=== PATIENT | female | born 1965 | race Caucasian/White ===

== ENCOUNTER 2022-08-30 16:31 | Emergency (ER) | payer MEDICARE, OTHER ==
[~2022-08-30] VITALS: Ht 170.2 cm; Wt 100.7 kg
--- NOTE | 2022-08-30 16:45 | NUR ---
RECEIVED pt 57 yrs female came by alejandrina from home c/o dizzness and syncopy genralized weekness
--- NOTE | 2022-08-30 16:50 | NUR ---
SEEN BY ORDER WAS given
[2022-08-30] MEDS ORDERED: IV NS 0.9% 1,000 ML IV ONE (17:00)
--- NOTE | 2022-08-30 17:00 | NUR ---
Inserted ango catheter g [address] ac blood drow and sent to lab
--- NOTE | 2022-08-30 17:11 | NUR ---
ACCHCHEK DONE 80MG/LD
--- NOTE | 2022-08-30 17:12 | NUR ---
TO CT SCAN of head via garny awake and alert
[2022-08-30 17:34] LABS: BASOPHILS % (AUTO) 0.2 % (0.0-2.0); EOSINOPHILS % (AUTO) 0.8 % (0.0-6.0); HEMATOCRIT 36 % (33-45); HEMOGLOBIN 11.6 g/dL (11.5-14.8); LYMPHOCYTES # (AUTO) 1.1 K/uL (0.8-4.8); LYMPHOCYTES % (AUTO) 12.2 % (20.0-44.0); MEAN CORPUSCULAR HGB CONC 33 g/dl (31.0-36.0); MEAN CORPUSCULAR VOLUME 89 fL (82-100); MONOCYTES # (AUTO) 0.2 K/uL (0.1-1.30); MONOCYTES % (AUTO) 1.8 % (2.0-12.0); NEUTROPHILS # (AUTO) 7.6 K/uL (1.8-8.9); PLATELET COUNT (AUTO) 187 K/uL (150-450); RED BLOOD CELL COUNT(AUTO) 4.01 MIL/uL (4.0-5.2); WHITE BLOOD COUNT (AUTO) 8.9 K/uL (4.3-11.0)
--- NOTE | 2022-08-30 17:38 | NUR ---
Doubler study done at bed side
[2022-08-30 17:45] LABS: CALCIUM, SERUM 8.7 mg/dL (8.5-10.1); CARBON DIOXIDE 33 mmol/L (21-32); CHLORIDE 101 mmol/L (98-107); CREATININE 0.9 mg/dL (0.6-1.3); GLUCOSE 104 mg/dL (74-106); POTASSIUM 3.2 mmol/L (3.5-5.1); SODIUM SERUM 140 mmol/L (136-145); UREA NITROGEN, BLOOD 12 mg/dL (7-18)
[2022-08-30 17:49] LABS: ALANINE AMINOTRANSFERASE 15 U/L (12-78); ALBUMIN 3.4 g/dL (3.4-5.0); ALKALINE PHOSPHATASE 98 U/L (46-116); ASPARTATE AMINOTRANSFERASE 24 U/L (15-37); BILIRUBIN,DIRECT 0.3 mg/dL (0.0-0.2); BILIRUBIN,TOTAL 0.9 mg/dL (0.2-1.0); TOTAL PROTEIN, SERUM 8.4 g/dL (6.4-8.2)
[2022-08-30 17:57] LABS: THYROID STIMULATING HORMONE 0.222 uIU/mL (0.358-3.74)
--- NOTE | 2022-08-30 18:00 | NUR ---
COVID SWAB SENT TO LAB
--- NOTE | 2022-08-30 19:10 | NUR ---
Dipak marin in [place] - 08/30/22 at 1928 by ADRIANNE UA SENT TO LAB
--- NOTE | 2022-08-30 19:15 | NUR ---
HAND SALVATORE DANIELS RN
--- NOTE | 2022-08-30 19:21 | NUR ---
URINE COLLECTED AND SENT TO LAB
[2022-08-30 20:18] LABS: BILIRUBIN,URINE NEGATIVE (NEGATIVE); COLOR,URINE YELLOW (YELLOW); LEUKOCYTE ESTERASE ,URINE SMALL (NEGATIVE); NITRITE, URINE NEGATIVE (NEGATIVE); PROTEIN,URINE 30 mg/dl (NEGATIVE); UGLUCOSE NEGATIVE (NEGATIVE)
[2022-08-30 20:43] LABS: BACTERIA,URINE 2+ /HPF (None Seen); MUCUS,URINE Few /LPF (None Seen); SQUAMOUS EPITHELIAL CELL,UR 0-2 /HPF (None Seen)
[2022-08-30] MEDS ORDERED: SULF1TAB48 PO (21:04)
[2022-08-30] MEDS ORDERED: KETOROLAC TROMETHAMINE INJ 30 MG/ML VIAL ONE (21:20)
[2022-08-30] MEDS ORDERED: KETOROLAC TROMETHAMINE INJ 30 MG/ML VIAL IV ONE (21:30)
--- NOTE | 2022-08-30 21:31 | NUR ---
Patient discharged to home in stable condition. RX Written and verbal after care instructions given. Patient verbalizes understanding of instruction. IV removed. Catheter intact and site benign. Pressure and 4x4 applied to site. No bleeding noted.
[2022-08-30 22:38] VITALS: BP 124/81
== END 2022-08-30 22:38 | disposition home or self-care (01) ==
LOC: ER 16:36
DX: R55 Syncope and collapse (principal); N39.0 Urinary tract infection, site not specified; Z20.822 Contact with and (suspected) exposure to COVID-19; R00.0 Tachycardia, unspecified; D32.9 Benign neoplasm of meninges, unspecified; I51.7 Cardiomegaly; Z86.69 Personal history of other diseases of the nervous system and sense organs
CPT/HCPCS: 99285; 96374; 70450; 93971; 71045; 96361; 87426; 93005; 85025; 80048; 87086; 80076; 81001; 36415; 84439; 84443; 84484; 85730; 83880; J1885; J7030; C9803

== ENCOUNTER 2022-11-08 16:04 | Inpatient (IN) | payer MEDICARE, OTHER ==
[~2022-11-08] VITALS: Ht 152.4 cm; Wt 112.7 kg
[~2022-11-08 16:04] MED LIST: SULF1TAB48 PO
[2022-11-08] MEDS ORDERED: VANCOMYCIN 1 GM in IV D5W 250 ML IV ONE (17:00)
[2022-11-08] MEDS ORDERED: PIPERACILLIN /TAZOBACTAM 3.375 G in IV D5W 50 ML IV ONE (17:00)
--- NOTE | 2022-11-08 17:00 | NUR ---
PHLEB AT BEDSIDE FOR BLOOD DRAW
--- NOTE | 2022-11-08 17:05 | NUR ---
PT TAKEN TO RADIOLOGY FOR CT
--- NOTE | 2022-11-08 17:17 | NUR ---
PT RETURNED FROM RADIOLOGY
[2022-11-08 17:19] LABS: BASOPHILS % (AUTO) 0.1 % (0.0-2.0); EOSINOPHILS % (AUTO) 2.3 % (0.0-6.0); HEMATOCRIT 29 % (33-45); HEMOGLOBIN 9.4 g/dL (11.5-14.8); LYMPHOCYTES # (AUTO) 1.6 K/uL (0.8-4.8); LYMPHOCYTES % (AUTO) 25.5 % (20.0-44.0); MEAN CORPUSCULAR HGB CONC 32 g/dl (31.0-36.0); MEAN CORPUSCULAR VOLUME 90 fL (82-100); MONOCYTES # (AUTO) 0.3 K/uL (0.1-1.30); MONOCYTES % (AUTO) 4.7 % (2.0-12.0); NEUTROPHILS # (AUTO) 4.3 K/uL (1.8-8.9); NEUTROPHILS % (AUTO) 67.4 % (43.0-81.0); PLATELET COUNT (AUTO) 211 K/uL (150-450); RED BLOOD CELL COUNT(AUTO) 3.25 MIL/uL (4.0-5.2); WHITE BLOOD COUNT (AUTO) 6.3 K/uL (4.3-11.0)
[2022-11-08] MEDS ORDERED: LEVO75TA7 PO (17:19)
[2022-11-08] MEDS ORDERED: MODAFINIL PO (17:20)
--- NOTE | 2022-11-08 17:30 | NUR ---
INSTANT POWDER SUPERVISOR AT BEDSIDE FOR ULTRASOUND
[2022-11-08 17:31] LABS: CALCIUM, SERUM 8.9 mg/dL (8.5-10.1); CARBON DIOXIDE 30 mmol/L (21-32); CHLORIDE 102 mmol/L (98-107); CREATININE 0.7 mg/dL (0.6-1.3); GLUCOSE 100 mg/dL (74-106); SODIUM SERUM 136 mmol/L (136-145); UREA NITROGEN, BLOOD 9 mg/dL (7-18)
--- NOTE | 2022-11-08 17:35 | NUR ---
IV LINE ESTABLISHED ON RAC #20
[2022-11-08] MEDS ORDERED: KETOROLAC TROMETHAMINE 15 MG/ML VIAL ONE (17:36)
--- NOTE | 2022-11-08 17:44 | NUR ---
COVID SWAB COLLECTED AND SENT TO LAB
[2022-11-08 17:45] LABS: ALANINE AMINOTRANSFERASE 72 U/L (12-78); ALBUMIN 2.9 g/dL (3.4-5.0); ALKALINE PHOSPHATASE 283 U/L (46-116); ASPARTATE AMINOTRANSFERASE 72 U/L (15-37); BILIRUBIN,DIRECT 0.2 mg/dL (0.0-0.2); BILIRUBIN,TOTAL 0.5 mg/dL (0.2-1.0); TOTAL PROTEIN, SERUM 8.1 g/dL (6.4-8.2)
[2022-11-08] MEDS ORDERED: KETOROLAC TROMETHAMINE INJ 30 MG/ML VIAL IV ONE (18:00)
--- NOTE | 2022-11-08 18:25 | NUR ---
MOVE SHEET SUBMITTED.
[2022-11-08] MEDS ORDERED: POTASSIUM CHLORIDE 20 MEQ TAB.PRT.SR PO ONE ×2 (18:30→18:36)
--- NOTE | 2022-11-08 20:25 | NUR ---
report given nurse ibarra
[2022-11-08 20:30] VITALS: BP 133/82
--- NOTE | 2022-11-08 21:27 | NUR ---
patient transferred, vss, no acute distress noted
[2022-11-08 21:30] VITALS: BP 132/82
--- NOTE | 2022-11-08 21:30 | NUR ---
MS PHOTOGRAPH FINISHER INITIAL MELISSA ADMIT PT FROM ER VIA WHEELCHAIR ACCOMPANIED BY SOFTWARE REVERSE ENGINEER. DX OF CELLULITIS. PT IS A/O X4 ABLE TO AMBULATE WITH ASSISTANCE BECAUSE OF HER LEFT LOWER LEG CELLULITIS. VITAL SIGNS FF BP 133/82, PULSE 63, RESP 18, TEMP 98F, O2 SAT 100%. PT HAS HEPLOCK GAUGE 20 PATENT AND INTACT. DENIES ANY PAIN OR ANY DISCOMFORT. WOUND CARE DONE, PICTURE TAKEN AND DRESSING CHANGES. KEPT HER WARM AND COMFORTABLE AT ALL TIMES. ORIENTED HOW TO USED THE CALL LIGHT SYSTEM . WILL CONTINUE MONITORING.
[2022-11-09] MEDS ORDERED: MAG HYDROX/AL HYDROX/SIMETH 30 ML UDC PO PRN
[2022-11-09] MEDS ORDERED: ZOLPIDEM TARTRATE 5 MG TABLET PO PRN
[2022-11-09] MEDS ORDERED: ONDANSETRON HCL/PF 4 MG/2 ML VIAL IVP PRN
[2022-11-09] MEDS ORDERED: ACETAMINOPHEN 325 MG TABLET PO PRN
[2022-11-09] MEDS ORDERED: Z GUARD REMEDY 4 OZ OINT TP PRN
[2022-11-09] MEDS ORDERED: MAGNESIUM HYDROXIDE 30 ML UDC PO PRN
[2022-11-09] MEDS ORDERED: PIPERACILLIN /TAZOBACTAM 3.375 G VIAL IV ONE (01:55)
[2022-11-09] MEDS: ENOXAPARIN SODIUM 40 MG/0.4 ML DISP.SYRIN SQ SCH ×2 (02:13→21:48)
[2022-11-09] MEDS: ZOSYN IVPB 3.375 G in IV D5W 50ml IV SCH ×2 (02:14→08:23)
--- NOTE | 2022-11-09 02:28 | NUR ---
ms valentin notes Due meds given as ordered. no signs of discomfort noted.
--- NOTE | 2022-11-09 06:33 | NUR ---
ms clay pigeon setter closing notes pt woke up and assist to used the bedside commode then back to bed . No signs of any distress noted. slept well . Stable throughout the night . Kept her warm and comfortable at all times. Offload bilateral heels on pillows. All due meds given and all needs met. will endorse to am nurse for continuity of care. place call light at reach.
--- NOTE | 2022-11-09 07:00 | NUR ---
MS RN OPENING NOTES: RECEIVED PT IN BED, ASLEEP EASILY AROUSED WITH STIMULI. PT ALERT AND ORIENTED X 4 AND ABLE TO MAKE NEEDS KNOWN, NO SOB OR CARDIAC DISTRESS NOTED. DENIES PAIN AT THIS TIME. NOTED WITH IV ACCESS ON RAC GAUGE 2. PATENT, INTACT AND SALINE LOCKED. NOTED WITH SWOLLEN LEFT LOWER LEG. SAFETY MEASURES MAINTAINED: BED LOCKED AND IN LOWEST POSITION, SIDE RAILS UP X 2. CALL LIGHT AND BED SIDE TABLE IN EASY REACH FOR HELP. WILL MONITOR ACCORDINGLY.
[2022-11-09] MEDS: LEVOTHYROXINE SODIUM 75 MCG TABLET PO SCH (07:38)
[2022-11-09] MEDS: PANTOPRAZOLE 40 MG TABLET.DR PO SCH (07:38)
[2022-11-09 08:00] VITALS: BP 124/71
[2022-11-09] MEDS: MODAFINIL 100 MG TABLET PO SCH ×3 (09:00→16:25)
--- NOTE | 2022-11-09 09:30 | NUR ---
RN NOTES: FOLLOW UP [facility] TO PHARMACY, PHARMACIST STATED THEY WILL DELIVER IT NOW. WILL FOLLOW UP.
[2022-11-09 11:21] LABS: BASOPHILS % (AUTO) 0.3 % (0.0-2.0); EOSINOPHILS % (AUTO) 3.3 % (0.0-6.0); HEMATOCRIT 27 % (33-45); HEMOGLOBIN 9.1 g/dL (11.5-14.8); LYMPHOCYTES # (AUTO) 1.6 K/uL (0.8-4.8); LYMPHOCYTES % (AUTO) 34.6 % (20.0-44.0); MEAN CORPUSCULAR HGB CONC 33 g/dl (31.0-36.0); MEAN CORPUSCULAR VOLUME 89 fL (82-100); MONOCYTES # (AUTO) 0.2 K/uL (0.1-1.30); MONOCYTES % (AUTO) 5.2 % (2.0-12.0); NEUTROPHILS # (AUTO) 2.6 K/uL (1.8-8.9); NEUTROPHILS % (AUTO) 56.6 % (43.0-81.0); PLATELET COUNT (AUTO) 191 K/uL (150-450); RED BLOOD CELL COUNT(AUTO) 3.09 MIL/uL (4.0-5.2); WHITE BLOOD COUNT (AUTO) 4.5 K/uL (4.3-11.0)
[2022-11-09 11:35] LABS: CALCIUM, SERUM 8.5 mg/dL (8.5-10.1); CREATININE 0.6 mg/dL (0.6-1.3); MAGNESIUM 1.8 mg/dL (1.8-2.4)
--- NOTE | 2022-11-09 11:45 | NUR ---
RN NOTES: FOLLOW UP WITH PHARMACY AND PER PHARM THEY WILL FOLLOW UP. SHE STATED SHE WILL UPDATE RN.
[2022-11-09 11:54] LABS: POTASSIUM 2.8 mmol/L (3.5-5.1)
--- NOTE | 2022-11-09 12:36 | NUR ---
RN NOTES: RECEIVED CRIITICAL LAB RESULT: K LEVEL 2.8, REPORTED TO DR RENTERIA. ORDERED POTASSIUM PO 80MEQ ONE DOSE ONLY. ORDERS NOTED AND CARRIED OUT.
[2022-11-09] MEDS ORDERED: POTASSIUM CHLORIDE 20 MEQ TAB.PRT.SR PO ONE (13:00)
[2022-11-09] MEDS: VANCOMYCIN HCL 0.75 GM in IV D5W 250 ML IV SCH ×2 (13:37→20:55)
[2022-11-09 16:00] VITALS: BP 122/72
[2022-11-09 17:19] LABS: BILIRUBIN,URINE NEGATIVE (NEGATIVE); COLOR,URINE YELLOW (YELLOW); LEUKOCYTE ESTERASE ,URINE TRACE (NEGATIVE); NITRITE, URINE NEGATIVE (NEGATIVE); PH,URINE 5.5 (5.0-8.0); PROTEIN,URINE NEGATIVE (NEGATIVE); UGLUCOSE NEGATIVE (NEGATIVE); UROBILINOGEN,URINE 0.2 EU/dL (0.2)
[2022-11-09 17:34] LABS: BACTERIA,URINE None seen /HPF (None Seen); SQUAMOUS EPITHELIAL CELL,UR 0-2 /HPF (None Seen); URINE AMORPHOUS URATE Moderate /HPF (None Seen); WBC,URINE 0-2 /HPF (0-3)
--- NOTE | 2022-11-09 18:50 | NUR ---
MS RN CLOSING NOTES: PATIENT IN BED, AWAKE ALERT AND ORIENTED X 4 AND ABLE TO VERBALIZED NEEDS. NO SOB OR CARDIAC DISTRESS NOTED, DENIES PAIN AT THIS TIME.ON ROOM AIR AND TOLERATING WELL. IV ACCESS ON RAC GAUGE 20 PATENT,INTACT AND SALINE LOCKED. WOUND CARE TREATMENT DONE, PT TOLERATED WELL. SAFETY MEASURES MAINTAINED: BED LOCKED AND IN LOWEST POSITION, SIDE RAILS UP X 2, CALL LIGHT IN EASY REACH FOR HELP. ENDORSE TO DENITRATOR RN FOR CONTINUITY OF CARE.
[2022-11-09 20:00] VITALS: BP 131/62
[2022-11-09] MEDS: PIPERACILLIN /TAZOBACTAM 3.375 G in IV D5W 100 ML IV SCH (21:38)
[2022-11-10] MEDS: VANCOMYCIN HCL 0.75 GM in IV D5W 250 ML IV SCH ×3 (05:06→22:08)
[2022-11-10] MEDS: PIPERACILLIN /TAZOBACTAM 3.375 G in IV D5W 100 ML IV SCH (05:35)
[2022-11-10] MEDS: HYDROCODONE/APAP 5/325MG TABLET PO PRN ×2 (06:12→20:22)
--- NOTE | 2022-11-10 07:00 | NUR ---
MS RN OPENING NOTES: RECEIVED PT IN BED, AWAKE, WATCHING TELEVISION. PT ALERT AND ORIENTED X 4 AND ABLE TO MAKE NEEDS KNOWN, NO SOB OR CARDIAC DISTRESS NOTED. DENIES PAIN AT THIS TIME. NOTED WITH IV ACCESS ON RAC GAUGE 20 PATENT, INTACT AND SALINE LOCKED. NOTED WITH SWOLLEN LEFT LOWER LEG WRAPPED WITH KERLIX NOTED WITH YELLOW COLORED DISCHARGE ON DRESSING. SAFETY MEASURES MAINTAINED: BED LOCKED AND IN LOWEST POSITION, SIDE RAILS UP X 2. CALL LIGHT AND BED SIDE TABLE IN EASY REACH FOR HELP. WILL MONITOR ACCORDINGLY.
[2022-11-10 07:13] LABS: CALCIUM, SERUM 8.5 mg/dL (8.5-10.1); CREATININE 0.6 mg/dL (0.6-1.3); POTASSIUM 3.9 mmol/L (3.5-5.1)
[2022-11-10] MEDS: PANTOPRAZOLE 40 MG TABLET.DR PO SCH (07:25)
[2022-11-10] MEDS: LEVOTHYROXINE SODIUM 75 MCG TABLET PO SCH (07:25)
[2022-11-10 08:00] VITALS: BP 132/80
[2022-11-10] MEDS: MODAFINIL 100 MG TABLET PO SCH ×3 (08:38→17:07)
--- NOTE | 2022-11-10 09:30 | NUR ---
RN NOTES: WOUND CARE TREATMENT DONE, PT TOLERATED WELL.
[2022-11-10] MEDS ORDERED: VANCOMYCIN 0.75 GM in IV D5W 250 ML IV SCH (11:00)
[2022-11-10] MEDS: ZOSYN IVPB 3.375 G in IV D5W 50ml IV SCH ×2 (11:31→17:09)
[2022-11-10 16:00] VITALS: BP 119/72
--- NOTE | 2022-11-10 18:45 | NUR ---
MS RN CLOSING NOTES: PATIENT IN BED, AWAKE ALERT AND ORIENTED X 4 AND ABLE TO VERBALIZED NEEDS. NO SOB OR CARDIAC DISTRESS NOTED, DENIES PAIN AT THIS TIME. FAMILY AT BED SIDE. ON ROOM AIR AND TOLERATING WELL. IV ACCESS ON LFA GAUGE 22 PATENT,INTACT AND SALINE LOCKED. WOUND CARE TREATMENT DONE, PT TOLERATED WELL. SAFETY MEASURES MAINTAINED: BED LOCKED AND IN LOWEST POSITION, SIDE RAILS UP X 2, CALL LIGHT IN EASY REACH FOR HELP. ENDORSE TO SHEEP OR CALF GRADER RN FOR CONTINUITY OF CARE.
--- NOTE | 2022-11-10 19:45 | NUR ---
RN OPENING NOTE RECEIVED PATIENT IN BED; AWAKE, ALERT AND ORIENTED X 4. ON ROOM AIR; TOLERATING WELL SATURATING @ 99%. NOT IN ANY FORM OF RESPIRATORY OR CARDIAC DISTRESS. DENIES ANY PAIN OR DISCOMFORT AT THIS TIME. WITH IV ACCESS ON LEFT FOREARM 22G; PATENT, INTACT AND SALINE LOCKED. ABLE TO VERBALIZE NEEDS. SAFETY MEASURES IMPLEMENTED: CALL LIGHT AND TABLE WITHIN EASY REACH, SIDE RAILS UP X 3, BED IN LOWEST LOCKED POSITION. WILL CONTINUE TO MONITOR
[2022-11-10 20:00] VITALS: BP 131/83
--- NOTE | 2022-11-10 20:22 | NUR ---
RN NOTE PATIENT COMPLAINED OF PAIN ON BOTH LOWER LEGS WITH PAIN SCALE OF 5/10. PRN NORCO 5/325 MG GIVEN PO ORDERED. KEPT COMFORTABLE IN BED. WILL CONTINUE TO MONITOR AND REASSESS PATIENT.
[2022-11-10] MEDS: DOXYCYCLINE HYCLATE (100 MG) 100 MG TABLET PO SCH (22:12)
[2022-11-10] MEDS: ENOXAPARIN SODIUM 40 MG/0.4 ML DISP.SYRIN SQ SCH (23:13)
[2022-11-11] MEDS: ZOSYN IVPB 3.375 G in IV D5W 50ml IV SCH ×5 (00:50→23:09)
[2022-11-11] MEDS: VANCOMYCIN HCL 0.75 GM in IV D5W 250 ML IV SCH ×3 (04:18→21:52)
--- NOTE | 2022-11-11 06:50 | NUR ---
RN CLOSING NOTE PATIENT IN BED; AWAKE, A/O X 4. STABLE ON ROOM AIR. IN NO ACUTE DISTRESS. DENIES ANY PAIN OR DISCOMFORT AT THIS TIME. WITH IV ACCESS LEFT FOREARM 22G; PATENT, INTACT AND SALINE LOCKED. ALL NEEDS MET. SAFETY MEASURES MAINTAINED: CALL LIGHT AND TABLE WITHIN EASY REACH, SIDE RAILS UP X 3, BED IN LOWEST LOCKED POSITION. ENDORSED TO MORNING SHIFT FOR HERMES.
[2022-11-11] MEDS: LEVOTHYROXINE SODIUM 75 MCG TABLET PO SCH ×2 (07:30→07:55)
[2022-11-11] MEDS: PANTOPRAZOLE 40 MG TABLET.DR PO SCH (07:55)
[2022-11-11] MEDS: DOXYCYCLINE HYCLATE (100 MG) 100 MG TABLET PO SCH ×2 (08:51→21:53)
[2022-11-11] MEDS: MODAFINIL 100 MG TABLET PO SCH ×3 (08:51→16:45)
--- NOTE | 2022-11-11 09:24 | NUR ---
RN OPENING NOTE PATIENT AWAKE IN BED RESTING, A/O X 4. NO S/S OF PAIN NOTED AT THIS TIME. ON ROOM AIR, NO DISTRESS OR SHORTNESS OF BREATH NOTED. IV ACCESS LFA #22G, INTACT, PATENT AND FLUSHING WELL. FALL AND SAFETY MEASURES IN PLACE, BED ALARM ON, BED IN LOW AND LOCK POSITION, CALL LIGHT AND TABLE WITHIN EASY REACH, SIDE RAILS UP X2. WILL CONTINUE TO MONITOR.
[2022-11-11 09:27] LABS: BASOPHILS % (AUTO) 0.4 % (0.0-2.0); EOSINOPHILS % (AUTO) 4.2 % (0.0-6.0); HEMATOCRIT 28 % (33-45); HEMOGLOBIN 9.1 g/dL (11.5-14.8); LYMPHOCYTES # (AUTO) 1.9 K/uL (0.8-4.8); LYMPHOCYTES % (AUTO) 48.4 % (20.0-44.0); MEAN CORPUSCULAR HGB CONC 33 g/dl (31.0-36.0); MEAN CORPUSCULAR VOLUME 90 fL (82-100); MONOCYTES # (AUTO) 0.3 K/uL (0.1-1.30); MONOCYTES % (AUTO) 6.4 % (2.0-12.0); NEUTROPHILS # (AUTO) 1.6 K/uL (1.8-8.9); NEUTROPHILS % (AUTO) 40.6 % (43.0-81.0); PLATELET COUNT (AUTO) 217 K/uL (150-450); RED BLOOD CELL COUNT(AUTO) 3.08 MIL/uL (4.0-5.2)
[2022-11-11 09:32] LABS: CALCIUM, SERUM 8.7 mg/dL (8.5-10.1); CREATININE 0.6 mg/dL (0.6-1.3); POTASSIUM 3.5 mmol/L (3.5-5.1)
[2022-11-11] MEDS: HYDROCODONE/APAP 5/325MG TABLET PO PRN ×2 (11:38→17:58)
[2022-11-11 11:45] VITALS: BP 129/66
--- NOTE | 2022-11-11 19:24 | NUR ---
RN CLOSING NOTE PATIENT AWAKE IN BED RESTING, A/O X 4. NO S/S OF PAIN NOTED AT THIS TIME. ON ROOM AIR, NO DISTRESS OR SHORTNESS OF BREATH NOTED. IV ACCESS LFA #22G, INTACT, PATENT AND FLUSHING WELL. SCHEDULED MEDICATIONS ADMINISTERED. WOUND CARE IMPLEMENTED. FALL AND SAFETY MEASURES IN PLACE, BED ALARM ON, BED IN LOW AND LOCK POSITION, CALL LIGHT AND TABLE WITHIN EASY REACH, SIDE RAILS UP X2. WILL ENDORSE TO OFFSET PRINTING OPERATOR.
--- NOTE | 2022-11-11 19:40 | NUR ---
RN OPENING NOTE RECEIVED PATIENT IN BED; AWAKE, ALERT AND ORIENTED X 4. ON ROOM AIR; TOLERATING WELL. NOT IN ANY FORM OF RESPIRATORY OR CARDIAC DISTRESS. DENIES ANY PAIN OR DISCOMFORT AT THIS TIME. WITH IV ACCESS ON LEFT FOREARM 22G; INTACT, PATENT AND SALINE LOCKED. ABLE TO VERBALIZE NEEDS. SAFETY MEASURES IMPLEMENTED: CALL LIGHT AND TABLE WITHIN EASY REACH, SIDE RAILS UP X 3, BED IN LOWEST LOCKED POSITION. WILL CONTINUE TO MONITOR
[2022-11-11 20:00] VITALS: BP_SYST 134; BP_SYST 142; BP_DIAS 80; BP_DIAS 88
[2022-11-11] MEDS: ENOXAPARIN SODIUM 40 MG/0.4 ML DISP.SYRIN SQ SCH (22:37)
--- NOTE | 2022-11-12 05:00 | NUR ---
RN NOTE PATIENT REFUSED TO HAVE PICTURES TAKEN ON HER LEFT LEG AND LEFT FOOT.
[2022-11-12] MEDS: VANCOMYCIN HCL 0.75 GM in IV D5W 250 ML IV SCH ×2 (05:24→14:37)
[2022-11-12] MEDS: ZOSYN IVPB 3.375 G in IV D5W 50ml IV SCH (06:26)
[2022-11-12 07:00] VITALS: BP 119/72
[2022-11-12] MEDS ORDERED: SULF1TAB48 PO (08:23)
[2022-11-12] MEDS: MODAFINIL 100 MG TABLET PO SCH ×3 (08:36→17:44)
[2022-11-12] MEDS: PANTOPRAZOLE 40 MG TABLET.DR PO SCH (08:36)
[2022-11-12] MEDS: LEVOTHYROXINE SODIUM 75 MCG TABLET PO SCH (08:36)
[2022-11-12] MEDS: DOXYCYCLINE HYCLATE (100 MG) 100 MG TABLET PO SCH (08:37)
[2022-11-12] MEDS ORDERED: CEFTRIAXONE 1 G in IV D5W 50 ML IV SCH (14:00)
[2022-11-12 15:49] LABS: BASOPHILS % (AUTO) 0.2 % (0.0-2.0); EOSINOPHILS % (AUTO) 4.2 % (0.0-6.0); HEMATOCRIT 29 % (33-45); HEMOGLOBIN 9.3 g/dL (11.5-14.8); LYMPHOCYTES # (AUTO) 1.8 K/uL (0.8-4.8); MEAN CORPUSCULAR HGB CONC 32 g/dl (31.0-36.0); MEAN CORPUSCULAR VOLUME 89 fL (82-100); MONOCYTES # (AUTO) 0.3 K/uL (0.1-1.30); MONOCYTES % (AUTO) 6.4 % (2.0-12.0); NEUTROPHILS # (AUTO) 1.9 K/uL (1.8-8.9); NEUTROPHILS % (AUTO) 46.2 % (43.0-81.0); PLATELET COUNT (AUTO) 232 K/uL (150-450); RED BLOOD CELL COUNT(AUTO) 3.22 MIL/uL (4.0-5.2); WHITE BLOOD COUNT (AUTO) 4.2 K/uL (4.3-11.0)
[2022-11-12 16:00] VITALS: BP 121/72
[2022-11-12 16:03] LABS: CREATININE 0.7 mg/dL (0.6-1.3); POTASSIUM 3.9 mmol/L (3.5-5.1)
== END 2022-11-12 19:23 | disposition home or self-care (01) | DRG 602 ==
LOC: ER 16:11 → MED 20:28
PROVIDERS: ADMIT Student in an Organized Health Care Education/Training Program; ATTEND Internal Medicine
DX: L03.116 Cellulitis of left lower limb (principal); E43 Unspecified severe protein-calorie malnutrition; N39.0 Urinary tract infection, site not specified; Z68.42 Body mass index [BMI] 45.0-49.9, adult; L97.829 Non-pressure chronic ulcer of other part of left lower leg with unspecified severity; Z86.73 Personal history of transient ischemic attack (TIA), and cerebral infarction without residual deficits; Z20.822 Contact with and (suspected) exposure to COVID-19; E66.01 Morbid (severe) obesity due to excess calories; G47.33 Obstructive sleep apnea (adult) (pediatric); I50.9 Heart failure, unspecified; Z79.899 Other long term (current) drug therapy; E87.6 Hypokalemia; D64.9 Anemia, unspecified; D32.9 Benign neoplasm of meninges, unspecified; E03.9 Hypothyroidism, unspecified; I89.0 Lymphedema, not elsewhere classified; E88.09 Other disorders of plasma-protein metabolism, not elsewhere classified; I83.028 Varicose veins of left lower extremity with ulcer other part of lower leg
CPT/HCPCS: 36415; 73700-TC; 80048-TC; 80076-TC; 80202-TC; 81001; 83605-TC; 83735-TC; 83880; 84100-TC; 84484-TC; 85025-TC; 87040-TC; 93971-TC; A6253; A6403; C9803; G0378; J0696; J1650; J1885; J2543; J3370; J7060

== ENCOUNTER 2022-11-26 10:43 | Outpatient (CLI) | payer MEDICARE, OTHER ==
[~2022-11-26 10:43] MED LIST changes: +LEVO75TA7 PO; +MODAFINIL PO
== END 2022-11-26 23:59 | disposition home or self-care (01) ==
LOC: WOU 10:43
PROVIDERS: ATTEND Podiatrist Foot & Ankle Surgery
DX: I87.2 Venous insufficiency (chronic) (peripheral) (principal); R60.0 Localized edema; L85.3 Xerosis cutis
CPT/HCPCS: G0463

== ENCOUNTER 2022-12-10 09:35 | Outpatient (CLI) | payer MEDICARE, OTHER | END 2022-12-10 23:59 | disposition home or self-care (01) | LOC: WOU 09:35 | PROVIDERS: ATTEND Podiatrist Foot & Ankle Surgery | DX: I87.2 Venous insufficiency (chronic) (peripheral) (principal); R60.0 Localized edema; L85.3 Xerosis cutis | CPT/HCPCS: G0463 ==

== ENCOUNTER 2024-11-22 17:25 | Inpatient (IN) | payer MEDICARE, OTHER ==
[~2024-11-22] VITALS: Ht 162.6 cm; Wt 102.6 kg
[2024-11-22 18:25] LABS: BASOPHILS % (AUTO) 0.3 % (0.0-2.0); HEMATOCRIT 34 % (33-45); HEMOGLOBIN 11.1 g/dL (11.5-14.8); LYMPHOCYTES # (AUTO) 1.5 K/uL (0.8-4.8); LYMPHOCYTES % (AUTO) 52.4 % (20.0-44.0); MEAN CORPUSCULAR HEMOGLOBIN 30 PG (26.0-33.0); MEAN CORPUSCULAR HGB CONC 33 g/dl (31.0-36.0); MEAN CORPUSCULAR VOLUME 92 fL (82-100); MONOCYTES # (AUTO) 0.1 K/uL (0.1-1.30); MONOCYTES % (AUTO) 4.7 % (2.0-12.0); NEUTROPHILS # (AUTO) 1.2 K/uL (1.8-8.9); NEUTROPHILS % (AUTO) 42.6 % (43.0-81.0); PLATELET COUNT (AUTO) 128 K/uL (150-450); RED BLOOD CELL COUNT(AUTO) 3.64 MIL/uL (4.0-5.2); RED CELL DISTRIBUTION WIDTH 16.1 % (11.5-15.0); WHITE BLOOD COUNT (AUTO) 2.8 K/uL (4.3-11.0)
[2024-11-22] MEDS: AZITHROMYCIN 500 MG in IV D5W 250 ML IV ONE (18:30)
[2024-11-22] MEDS: PIPERACILLIN /TAZOBACTAM 3.375 G in IV D5W 50 ML IV ONE (18:30)
[2024-11-22] MEDS: VANCOMYCIN 1 GM in IV D5W 250 ML IV ONE (18:30)
[2024-11-22 18:33] LABS: ABG BASE EXCESS 0.9 mmol/L (-2.0-3.0); ABG OXYGEN SATURATION 87.4 % (94.0-98.0); ABG PCO2 42.9 mmHg (32.0-45.0); ABG PH 7.399 (7.350-7.450); ABG TOTAL HEMOGLOBIN 11.8 G/dL (12.0-16.0); COHb 0.3 % (0.5-1.5); MetHb 0.2 % (0.0-1.5); SITE, ABG LEFT RADIAL
[2024-11-22 18:36] LABS: CALCIUM, SERUM 8.1 mg/dL (8.5-10.1); CARBON DIOXIDE 26 mmol/L (21-32); CHLORIDE 105 mmol/L (98-107); CREATININE 1.1 mg/dL (0.6-1.3); GLUCOSE 156 mg/dL (74-106); POTASSIUM 3.5 mmol/L (3.5-5.1); SODIUM SERUM 141 mmol/L (136-145); UREA NITROGEN, BLOOD 21 mg/dL (7-18)
[2024-11-22 18:48] LABS: ALANINE AMINOTRANSFERASE 15 U/L (12-78); ALBUMIN 3.3 g/dL (3.4-5.0); ALKALINE PHOSPHATASE 150 U/L (46-116); ASPARTATE AMINOTRANSFERASE 53 U/L (15-37); BILIRUBIN,DIRECT 0.2 mg/dL (0.0-0.2); BILIRUBIN,TOTAL 0.4 mg/dL (0.2-1.0); NT-PRO BNP 865 pg/mL (0-125)
[2024-11-22 18:48] LABS: INR 1.01 (0.91-1.10); PARTIAL THROMBOPLASTIN TIME 27.9 SEC (24.3-34.3); PROTHROMBIN TIME 10.7 SECS (9.2-11.1)
[2024-11-22] MEDS ORDERED: LEVO50TA8 PO (18:53)
[2024-11-22] MEDS ORDERED: AZITHROMYCIN 500 MG VIAL ONE (19:26)
[2024-11-22] MEDS ORDERED: PIPERACI/TAZO 3.375GM/D5W 50ML PB IV ONE (19:26)
[2024-11-22] MEDS ORDERED: VANCOMYCIN 1 GM /D5W 250 ML PB IV ONE (19:26)
[2024-11-22] MEDS: ASPIRIN 325 MG TABLET PO ONE (20:00)
[2024-11-22 20:19] LABS: APPEARANCE,URINE SLIGHTLY CLOUDY (CLEAR); BILIRUBIN,URINE 2+ (NEGATIVE); BLOOD, URINE 3+ Ery/uL (NEGATIVE); COLOR,URINE YELLOW (YELLOW); KETONES,URINE TRACE mg/dL (NEGATIVE); LEUKOCYTE ESTERASE ,URINE 2+ (NEGATIVE); NITRITE, URINE NEGATIVE (NEGATIVE); PROTEIN,URINE 2+ mg/dl (NEGATIVE); UGLUCOSE NEGATIVE (NEGATIVE)
[2024-11-22 20:37] LABS: ADD URINE CULTURE YES; BACTERIA,URINE Many /HPF (None Seen); WBC,URINE TOO NUMEROUS TO COUN /HPF (0-3)
[2024-11-22 20:38] LABS: SQUAMOUS EPITHELIAL CELL,UR Many /HPF (None Seen)
[2024-11-22 20:39] LABS: COARSE GRANULAR CASTS,URINE Moderate /LPF (None Seen)
[2024-11-22] MEDS ORDERED: Z GUARD REMEDY 4 OZ OINT TP PRN (21:00)
[2024-11-22] MEDS ORDERED: ACETAMINOPHEN 325 MG TABLET PO PRN (21:00)
[2024-11-22] MEDS ORDERED: PIPERACILLIN /TAZOBACTAM 3.375 G in IV D5W 50 ML IV SCH (21:00)
[2024-11-22] MEDS ORDERED: ONDANSETRON HCL/PF 4 MG/2 ML VIAL IVP PRN (21:00)
[2024-11-22] MEDS ORDERED: MAGNESIUM HYDROXIDE 30 ML UDC PO PRN (21:00)
[2024-11-22] MEDS ORDERED: MAG HYDROX/AL HYDROX/SIMETH 30 ML UDC PO PRN (21:00)
[2024-11-23] MEDS: ACETAMINOPHEN 650 MG/SUPP.RECT RC PRN (00:55)
[2024-11-23 04:00] VITALS: BP 84/60; TEMP 97.5
[2024-11-23] MEDS ORDERED: PIPERACI/TAZO 3.375GM/D5W 50ML PB IV ONE (04:57)
[2024-11-23] MEDS: PIPERACILLIN /TAZOBACTAM 3.375 G in IV D5W 50 ML IV SCH (05:16)
[2024-11-23] MEDS: LEVOTHYROXINE SODIUM 50 MCG TABLET PO SCH (07:30)
[2024-11-23 08:00] VITALS: BP 95/56; TEMP 98.1
[2024-11-23] MEDS: PANTOPRAZOLE 40 MG VIAL IV SCH (08:10)
[2024-11-23] MEDS: ASPIRIN 81 MG TAB.CHEW PO SCH (08:11)
[2024-11-23] MEDS: VANCOMYCIN 1 GM in IV D5W 250ml IV SCH (09:52)
[2024-11-23 11:00] LABS: BASOPHILS % (AUTO) 0.5 % (0.0-2.0); EOSINOPHILS % (AUTO) 0.1 % (0.0-6.0); HEMATOCRIT 33 % (33-45); LYMPHOCYTES % (AUTO) 37.7 % (20.0-44.0); MEAN CORPUSCULAR HEMOGLOBIN 31 PG (26.0-33.0); MEAN CORPUSCULAR HGB CONC 34 g/dl (31.0-36.0); MEAN CORPUSCULAR VOLUME 93 fL (82-100); MONOCYTES # (AUTO) 0.2 K/uL (0.1-1.30); MONOCYTES % (AUTO) 7.4 % (2.0-12.0); NEUTROPHILS # (AUTO) 1.5 K/uL (1.8-8.9); NEUTROPHILS % (AUTO) 54.3 % (43.0-81.0); PLATELET COUNT (AUTO) 126 K/uL (150-450); RED BLOOD CELL COUNT(AUTO) 3.54 MIL/uL (4.0-5.2); RED CELL DISTRIBUTION WIDTH 15.9 % (11.5-15.0); WHITE BLOOD COUNT (AUTO) 2.8 K/uL (4.3-11.0)
[2024-11-23 11:49] LABS: CALCIUM, SERUM 8.2 mg/dL (8.5-10.1); CREATININE 1.2 mg/dL (0.6-1.3); MAGNESIUM 1.9 mg/dL (1.8-2.4); PHOSPHORUS 2.8 mg/dL (2.5-4.9); POTASSIUM 3.2 mmol/L (3.5-5.1)
[2024-11-23 12:00] VITALS: BP 106/68; TEMP 98; O2SAT 95
[2024-11-23 12:04] LABS: THYROID STIMULATING HORMONE 0.5 uIU/mL (0.358-3.74)
[2024-11-23] MEDS: POTASSIUM CHLORIDE 20 MEQ TAB.PRT.SR PO ONE (13:43)
[2024-11-23] MEDS: IV NS 0.9% 1,000 ML IV PRN (13:44)
[2024-11-23] MEDS: CEFTRIAXONE 2 G in IV D5W 100 ML IV SCH (15:49)
[2024-11-23 16:00] VITALS: BP 90/78; TEMP 98.5; O2SAT 98
[2024-11-23 16:17] LABS: APPEARANCE,URINE SLIGHTLY CLOUDY (CLEAR); BILIRUBIN,URINE 1+ (NEGATIVE); BLOOD, URINE 1+ Ery/uL (NEGATIVE); COLOR,URINE YELLOW (YELLOW); KETONES,URINE NEGATIVE (NEGATIVE); LEUKOCYTE ESTERASE ,URINE 1+ (NEGATIVE); NITRITE, URINE NEGATIVE (NEGATIVE); PH,URINE 5.5 (5.0-8.0); PROTEIN,URINE 2+ mg/dl (NEGATIVE); UGLUCOSE NEGATIVE (NEGATIVE)
[2024-11-23 16:52] LABS: ADD URINE CULTURE YES; BACTERIA,URINE Many /HPF (None Seen); SQUAMOUS EPITHELIAL CELL,UR Rare /HPF (None Seen)
[2024-11-23 16:53] LABS: URINE AMORPHOUS URATE Many /HPF (None Seen)
[2024-11-23 16:54] LABS: COARSE GRANULAR CASTS,URINE Few /LPF (None Seen)
[2024-11-23 20:00] VITALS: BP 103/70; TEMP 97.5; O2SAT 95
[2024-11-23] MEDS: AZITHROMYCIN 500 MG in IV D5W 250 ML IV SCH (21:21)
[2024-11-24] VITALS: BP 91/75; TEMP 98.6; O2SAT 96
[2024-11-24 04:00] VITALS: BP 115/75; TEMP 97.9; O2SAT 96
[2024-11-24 08:00] VITALS: BP 114/72; TEMP 97.7; O2SAT 96
[2024-11-24] MEDS: PANTOPRAZOLE 40 MG TABLET.DR PO SCH (09:00)
[2024-11-24] MEDS: METOPROLOL TARTRATE 25 MG TABLET PO SCH (09:30)
[2024-11-24 16:00] VITALS: BP 125/78; TEMP 97.5; O2SAT 92
[2024-11-24 16:36] LABS: HIV-1 p24 ANTIGEN NON REACTIVE (NONREACTIVE); HIV-1/2 ANTIBODY NON REACTIVE (NONREACTIVE)
[2024-11-24 16:50] LABS: BASOPHILS % (AUTO) 0.4 % (0.0-2.0); EOSINOPHILS % (AUTO) 0.8 % (0.0-6.0); HEMATOCRIT 32 % (33-45); HEMOGLOBIN 10.7 g/dL (11.5-14.8); LYMPHOCYTES % (AUTO) 49.6 % (20.0-44.0); MEAN CORPUSCULAR HEMOGLOBIN 32 PG (26.0-33.0); MEAN CORPUSCULAR HGB CONC 33 g/dl (31.0-36.0); MEAN CORPUSCULAR VOLUME 95 fL (82-100); MONOCYTES % (AUTO) 13.2 % (2.0-12.0); PLATELET COUNT (AUTO) 105 K/uL (150-450); RED BLOOD CELL COUNT(AUTO) 3.37 MIL/uL (4.0-5.2); WHITE BLOOD COUNT (AUTO) 2.7 K/uL (4.3-11.0)
[2024-11-24 16:51] LABS: LYMPHOCYTES # (AUTO) 1.3 K/uL (0.8-4.8); MONOCYTES # (AUTO) 0.4 K/uL (0.1-1.30)
[2024-11-24 17:11] LABS: ALBUMIN 2.9 g/dL (3.4-5.0); BILIRUBIN,TOTAL 0.2 mg/dL (0.2-1.0); CALCIUM, SERUM 8.1 mg/dL (8.5-10.1); CREATININE 0.8 mg/dL (0.6-1.3); PHOSPHORUS 1.8 mg/dL (2.5-4.9); POTASSIUM 3.6 mmol/L (3.5-5.1); TOTAL PROTEIN, SERUM 7.5 g/dL (6.4-8.2)
[2024-11-24 18:09] LABS: ANISOCYTOSIS 1+; BASOPHILS % (MANUAL) 0 % (0.0-2.0); EOSINOPHILS % (MANUAL) 1 % (0-4); OVALOCYTES 1+; PLATELET ESTIMATE DECREASED
[2024-11-24 18:21] LABS: LYMPHOCYTES % (MANUAL) 48 % (16-48); MONOCYTES % (MANUAL) 3 % (0-11.0); NEUTROPHILS % (MANUAL) 44 (42-76)
[2024-11-24 20:00] VITALS: BP 113/78; TEMP 97.9; O2SAT 97
[2024-11-25 04:00] VITALS: BP 115/73; TEMP 97.5; O2SAT 100
[2024-11-25 08:00] VITALS: BP 99/58; TEMP 97.6; O2SAT 95
[2024-11-25 08:57] LABS: BASOPHILS % (AUTO) 0.4 % (0.0-2.0); EOSINOPHILS % (AUTO) 1.2 % (0.0-6.0); HEMATOCRIT 32 % (33-45); HEMOGLOBIN 10.6 g/dL (11.5-14.8); LYMPHOCYTES # (AUTO) 1.3 K/uL (0.8-4.8); LYMPHOCYTES % (AUTO) 48.5 % (20.0-44.0); MEAN CORPUSCULAR HEMOGLOBIN 31 PG (26.0-33.0); MEAN CORPUSCULAR HGB CONC 33 g/dl (31.0-36.0); MEAN CORPUSCULAR VOLUME 93 fL (82-100); MONOCYTES # (AUTO) 0.3 K/uL (0.1-1.30); MONOCYTES % (AUTO) 12.8 % (2.0-12.0); NEUTROPHILS % (AUTO) 37.1 % (43.0-81.0); PLATELET COUNT (AUTO) 128 K/uL (150-450); RED BLOOD CELL COUNT(AUTO) 3.42 MIL/uL (4.0-5.2); RED CELL DISTRIBUTION WIDTH 15.8 % (11.5-15.0); WHITE BLOOD COUNT (AUTO) 2.6 K/uL (4.3-11.0)
[2024-11-25 09:26] LABS: CALCIUM, SERUM 8.7 mg/dL (8.5-10.1); CREATININE 0.7 mg/dL (0.6-1.3); POTASSIUM 3.6 mmol/L (3.5-5.1)
[2024-11-25 16:00] VITALS: BP 110/73; TEMP 98.3
[2024-11-25] MEDS: K PHOS NEUTRAL 250 MG TABLET PO ONE (19:30)
[2024-11-25 20:00] VITALS: BP 135/82; TEMP 97.2; O2SAT 94
[2024-11-25] MEDS: AZITHROMYCIN 250 MG TABLET PO SCH (21:12)
[2024-11-26 04:00] VITALS: BP 120/72; TEMP 97.5; O2SAT 100
[2024-11-26 08:00] VITALS: BP 117/42; TEMP 97.9; O2SAT 100
[2024-11-26] MEDS ORDERED: ASPI-1169 PO (11:00)
[2024-11-26] MEDS ORDERED: ACET325T53 PO (11:00)
[2024-11-26] MEDS ORDERED: METO25TA20 PO (11:00)
[2024-11-26] MEDS ORDERED: PANT40TA49 PO (11:00)
[2024-11-26 16:00] VITALS: BP 100/63; TEMP 97.9; O2SAT 100
[2024-11-26 16:01] LABS: BASOPHILS % (AUTO) 0.2 % (0.0-2.0); EOSINOPHILS % (AUTO) 1.4 % (0.0-6.0); HEMATOCRIT 32 % (33-45); HEMOGLOBIN 10.6 g/dL (11.5-14.8); LYMPHOCYTES # (AUTO) 1.2 K/uL (0.8-4.8); LYMPHOCYTES % (AUTO) 39.9 % (20.0-44.0); MEAN CORPUSCULAR HEMOGLOBIN 31 PG (26.0-33.0); MEAN CORPUSCULAR HGB CONC 33 g/dl (31.0-36.0); MEAN CORPUSCULAR VOLUME 93 fL (82-100); MONOCYTES # (AUTO) 0.2 K/uL (0.1-1.30); MONOCYTES % (AUTO) 6.2 % (2.0-12.0); NEUTROPHILS # (AUTO) 1.5 K/uL (1.8-8.9); NEUTROPHILS % (AUTO) 52.3 % (43.0-81.0); PLATELET COUNT (AUTO) 158 K/uL (150-450); RED BLOOD CELL COUNT(AUTO) 3.45 MIL/uL (4.0-5.2); RED CELL DISTRIBUTION WIDTH 15.7 % (11.5-15.0)
[2024-11-26 16:17] LABS: CALCIUM, SERUM 8.9 mg/dL (8.5-10.1); CREATININE 0.8 mg/dL (0.6-1.3); POTASSIUM 3.6 mmol/L (3.5-5.1)
[2024-11-26 20:00] VITALS: BP 127/87; TEMP 98.4; O2SAT 96
[2024-11-27 04:00] VITALS: BP 118/65; TEMP 98; O2SAT 100
[2024-11-27 08:46] VITALS: BP 116/71
[2024-11-27 12:06] LABS: ABG BASE EXCESS 3.4 mmol/L (-2.0-3.0); ABG OXYGEN SATURATION 94.4 % (94.0-98.0); ABG PH 7.391 (7.350-7.450); ABG PO2 75.5 mmHg (83.0-108.0); ABG TOTAL HEMOGLOBIN 10.9 G/dL (12.0-16.0); COHb 0.3 % (0.5-1.5); MetHb 0.2 % (0.0-1.5); O2Hb 93.9 % (94.0-97.0); SITE, ABG LEFT RADIAL
== END 2024-11-27 13:40 | DRG 871 ==
LOC: ER 17:40 → TELE1 23:27 → TELE-TD 11-23 01:25 → MEDSG1 11-24 10:06
PROVIDERS: ATTEND Nurse Practitioner Family
DX: A41.9 Sepsis, unspecified organism (principal); I21.A1 Myocardial infarction type 2; J96.01 Acute respiratory failure with hypoxia; J15.9 Unspecified bacterial pneumonia; N17.0 Acute kidney failure with tubular necrosis; I50.32 Chronic diastolic (congestive) heart failure; N39.0 Urinary tract infection, site not specified; D61.818 Other pancytopenia; Z20.822 Contact with and (suspected) exposure to COVID-19; I11.0 Hypertensive heart disease with heart failure; Z86.011 Personal history of benign neoplasm of the brain; G47.33 Obstructive sleep apnea (adult) (pediatric); E11.9 Type 2 diabetes mellitus without complications; Z79.890 Hormone replacement therapy; Z79.899 Other long term (current) drug therapy; B96.89 Other specified bacterial agents as the cause of diseases classified elsewhere; Z98.890 Other specified postprocedural states; Z86.73 Personal history of transient ischemic attack (TIA), and cerebral infarction without residual deficits; E03.9 Hypothyroidism, unspecified; E66.9 Obesity, unspecified; Z68.38 Body mass index [BMI] 38.0-38.9, adult
CPT/HCPCS: 36415; 36600; 70450-TC; 71045-TC; 80048-TC; 80053-TC; 80076-TC; 80202-TC; 81001; 82140-TC; 82803-TC; 83605-TC; 83735-TC; 83880; 84100-TC; 84443-TC; 84484-TC; 85025-TC; 85730-TC; 86803; 87040-TC; 87086-TC; 87449; 87806; 92526; 92611-TC; 93307-TC; 93970-TC; 94760-TC; 94761-TC; 94799-TC; 97110-TC; 97112-TC; 97116-TC; 97530-TC; A4223; G0378; J0456; J0696; J2470; J2543; J3370; J7030; J7050; J7060

== ENCOUNTER 2025-07-18 16:49 | Emergency (ER) | payer MEDICARE, OTHER ==
[~2025-07-18] VITALS: Ht 162.6 cm; Wt 99.8 kg
[~2025-07-18 16:49] MED LIST changes: +ACET325T53 PO; +ASPI-1169 PO; +LEVO50TA8 PO; -LEVO75TA7 PO; +METO25TA20 PO; +PANT40TA49 PO; -SULF1TAB48 PO
[2025-07-18 17:05] VITALS: BP 111/75; TEMP 98
[2025-07-18] MEDS ORDERED: MINE50OI TP (17:46)
[2025-07-18] MEDS ORDERED: CETI-90 PO (17:46)
[2025-07-18] MEDS ORDERED: PRED20TA PO (17:46)
[2025-07-18 17:54] VITALS: O2SAT 98
== END 2025-07-18 17:55 | disposition home or self-care (01) ==
LOC: ER 16:49
DX: S20.319A Abrasion of unspecified front wall of thorax, initial encounter (principal); S30.811A Abrasion of abdominal wall, initial encounter; S20.419A Abrasion of unspecified back wall of thorax, initial encounter; S50.812A Abrasion of left forearm, initial encounter; R21 Rash and other nonspecific skin eruption; E03.9 Hypothyroidism, unspecified; E11.9 Type 2 diabetes mellitus without complications; I11.0 Hypertensive heart disease with heart failure; I50.9 Heart failure, unspecified; Z79.52 Long term (current) use of systemic steroids; Z79.82 Long term (current) use of aspirin; Z79.899 Other long term (current) drug therapy; Z86.011 Personal history of benign neoplasm of the brain; Z87.09 Personal history of other diseases of the respiratory system; Z87.39 Personal history of other diseases of the musculoskeletal system and connective tissue; X58.XXXA Exposure to other specified factors, initial encounter; Y93.89 Activity, other specified; Y92.89 Other specified places as the place of occurrence of the external cause; Y99.8 Other external cause status